=== PATIENT | male | born 1980 | race Caucasian/White ===

== ENCOUNTER 2020-07-26 05:00 | Emergency (ER) | payer SELFPAY ==
[~2020-07-26] VITALS: Ht 175.3 cm; Wt 87.0 kg
[2020-07-26 05:11] VITALS: BP 118/77
[2020-07-26] MEDS ORDERED: ACETAMINOPHEN 325MG TABLET PO ONE (08:15)
== END 2020-07-26 08:56 | disposition left against medical advice (07) ==
LOC: ER 05:00
DX: R68.89 Other general symptoms and signs (principal); Z53.21 Procedure and treatment not carried out due to patient leaving prior to being seen by health care provider